=== PATIENT | female | born 1970 | race Caucasian/White ===

== ENCOUNTER 2017-06-02 09:46 | Emergency (ER) | payer BC ==
[2017-06-02 10:08] VITALS: RESP 16; TEMP 96.4
--- NOTE | 2017-06-02 10:22 | PDOC ---
Nausea/Vomiting/Diarrhea HPI - General Chief Complaint: Nausea / Vomiting / Diarrhea Stated Complaint: diarrhea, nausea Date Seen by Provider: 06/02/17 Time Seen by Provider: 10:17 Source: POSITIVE: Patient Exam Limitations: POSITIVE: No limitations Nurse's Notes Reviewed & Considered: Yes - History of Present Illness Initial Comments: This is a 47-year-old female complaining of nausea and diarrhea. This patient lives in the [place] area and is presently traveling through on her way to [facility]. They stopped in [place] overnight and her symptoms of abdominal discomfort and diarrhea increased. She has been having what she describes as diarrhea for 15 days. This morning she began to have right lower quadrant pain and associated nausea. The diarrhea she describes as brown mucus. She states that she is having episodes of regular stools with brown mucus encasing the stool as well as episodes of chest mucus. She is having subjective fevers but is afebrile at this time. She denies chills and sweats. She denies headache denies sore throat. 2 weeks ago she did have a cough which caused her to seek evaluation by physician. At that time her was diagnosed with pneumonia and she developed chest tightness and shortness of breath for which she was prescribed albuterol. His at that time that she developed diarrhea. She read that albuterol can cause diarrhea and thinks that it may be associated. She has since stopped taking albuterol. Presently denies any shortness of breath or cough. She does have nausea but no vomiting she does have diarrhea. She denies any hematuria or dysuria. She denies rashes. She states she has never been and that her last menses was a week ago. Body Location Affected: REPORTS: Abdomen Timing: REPORTS: Constant Duration: >1 week Severity: Moderate Quality: REPORTS: Cramping, Fullness, "Pain" Abdominal Pain Onset Location: REPORTS: RLQ Abdominal Pain Radiation: REPORTS: RLQ Context: REPORTS: Sleep Modifying Factors: improves with: Nothing Associated Symptoms: REPORTS: Diarrhea, Mucous Diarrhea Similar Symptoms Previously: No Recent Care Received: REPORTS: Recently Seen, Treated by MD Any Prior Injuries Related to Current Complaint?: No - Patient Home Medications Home Medications: Home Medications Levonorgestrel-Eth Estra [Seasonale] 1 each PO DAILY 06/02/17 - Patient Allergies Allergies/Adverse Reactions: Allergies Allergy/AdvReac Type Severity Reaction Status Date / Time No Known Allergies Allergy Verified 06/02/17 09:57 Past Medical History - heen HEENT History: Denies History Cardiovascular History: Denies History Respiratory History: Other (please comment) Additional Respiratory History: says she has had issues with a "respiratory illness" but no diagnosis Gastrointestinal History: Other (please comment) Additional Gastrointestinal History: HAS "ALLERGIES" TO FOODS THAT CAUSE HER TO HAVE ABD PAIN Genitourinary History: Denies History Endocrine History: Denies History Musculoskeletal History: Denies History Neurological History: Denies History Blood Disorders: Denies History Psychiatric History: Denies History History of Sexually Transmitted Diseases: No Female Reproductive History: Denies History LMP: 05/22/17 Obstetrical History: Denies History Cancer History: Denies History In Past Year Been Physically Harmed or Verbally Threatened: No History of MDRO: No History of Other Communicable Diseases: No Tobacco Use: Never Smoker Alcohol Use: Rarely Substance Use Type: None Previous Surgical History: Yes Type / Date of Surgery: MAYA. EXPLORATORY LAP FOR ENDOMETRIOSIS Significant Family History: No pertinent family hx ROS - Limitations ROS Limitations: No Limitations Constitution: REPORTS: Fever Cardiovascular: REPORTS: Denies Cardiac Symptoms Respiratory: REPORTS: Denies Resp Symptoms Neurological: REPORTS: Denies Neuro Symptoms Gastrointestinal: REPORTS: Abdominal Pain, Nausea, Diarrhea Endocrine: REPORTS: Denies Symptoms Musculoskeletal: REPORTS: Denies MS Symptoms Genitourinary: REPORTS: Denies Symptoms Eyes: REPORTS: Denies Symptoms ENT: REPORTS: Denies Symptoms Skin: REPORTS: Denies Skin Symptoms Lympathic: REPORTS: Denies Lympathic Symptoms Immunologic: POSITIVE: Denies Symptoms Psychiatric: POSITIVE: Denies Psych Symptoms Nausea/Vomiting/Diarrhea Exam - General Appearance General Appearance: POSITIVE: Alert, Cooperative, No Acute Distress, No Evidence of Trauma - HEENT HEENT: POSITIVE: Head Inspection Nml, Eyes Inspection Nml, Ears Inspection Nml, Nose Inspection Nml, Oral/Dental Inspect. Nml, Pharynx Inspect. Nml, PERRL, EOMI - Neck Neck: POSITIVE: Supple, Normal Inspection, Non Tender - Respiratory Respiratory: POSITIVE: No Respiratory Distress, Breath Sounds Normal, Chest Non- Tender - Cardiovascular Cardiovascular: POSITIVE: Regular Rate and Rhythm, Heart Sounds Normal, Equal Pulses, Strong Pulses Peripheral Pulses: Radial (R): 3+ - Chest Chest: POSITIVE: Non Tender - Abdomen Abdomen: Soft: (All Quadrants), Normal Bowel Sounds: (All Quadrants), No Splenomegaly: (All Quadrants), No Hepatomegaly: (All Quadrants), No Guarding: ( All Quadrants), No Rebound: (All Quadrants), No Palpable Pulse: (All Quadrants) , No [place] Mass: (All Quadrants), No Distention: (All Quadrants), No Rigidity: (All Quadrants), Tenderness Noted: (RLQ) - Back Back: POSITIVE: Normal Inspection - Skin Skin: POSITIVE: Intact, Normal For Race, Warm, Dry, No Rash - Extremities Extremity: Non-Tender: (All Extremities), Normal ROM: (All Extremities), Normal Inspection: (All Extremities), Pelvis Stable: (All Extremities) - Neurological / Psychological Neurological: POSITIVE: Oriented X3, Motor Normal N/V/D Progress - Results Reviewed by me Xrays/CTs/US Reviewed by me: Yes Discussed with Radiologist: Yes Lab Results Reviewed: Yes Lab Results:: Laboratory Results 06/02/17 06/02/17 Range/Units 10:15 10:17 WBC 10.92 H (4.8-10.8) 10^3/uL RBC 4.70 (4.20-5.40) 10^6/uL Hgb 14.0 (12.0-16.0) g/dL Hct 41.5 (37.0-47.0) % MCV 88.3 (81-99) FL MCH 29.8 (27-31) PG MCHC 33.7 (33-37) g/dL RDW Std Deviation 38.8 L (39-50) fL RDW Coeff of Ty 12.1 (11.5-14.5) % Plt Count 296 (140-350) 10*3/uL MPV 10.9 (7.4-12.2) FL Immature Gran % (Auto) 0.2 (0-5) % Neut % (Auto) 73.3 (50-80) % Lymph % (Auto) 20.3 (10-50) % [place] % (Auto) 4.1 L (5-15) % Eos % (Auto) 1.2 (0-8) % Baso % (Auto) 0.9 (0-1) % Immature Gran # (Auto) 0.02 10*3/UL Neut # (Auto) 8.00 10*3/UL Lymph # (Auto) 2.22 10*3/uL [place] # (Auto) 0.45 (0.3-0.8) 10*3/UL Eos # (Auto) 0.13 10*3/UL Baso # (Auto) 0.10 10*3/UL WBC Morphology Comment Normal morphology (NORM) Plt Morphology Comment Normal morphology (NORM) RBC Morph Comment Normal morphology (NORM) Sodium 139 (135-145) meq/L Potassium 3.7 L (3.8-5.2) meq/L Chloride 108 (98-112) meq/L Carbon Dioxide 21 L (23-33) meq/L Anion Gap 10 (5-20) BUN 14 (7-22) mg/dL Creatinine 0.9 (0.50-1.20) mg/dL Estimated GFR > 60 (>60 ml/min/1.73m(2)) BUN/Creatinine Ratio 15.55 (6-20) Glucose 90 (78-110) mg/dL Calculated Osmolality 288.0 (267-292) mOsm/kg Calcium 9.1 (8.7-10.7) mg/dL Magnesium 2.0 (1.6-2.4) mg/dL Total Bilirubin 0.5 (0.3-1.2) mg/dL AST 16 (8-39) IU/L ALT 31 (9-52) IU/L Alkaline Phosphatase 79 (38-126) IU/L Total Protein 7.2 (6.1-8.0) g/dL Albumin 4.1 (3.5-4.8) g/dL Globulin 3.0 (2.50-4.10) g/dL Albumin/Globulin Ratio 1.30 (1.3-2.0) mg/g TSH 1.57 (0.2700-4.2000) uIU/mL Serum HCG, Qual Negative Ur Collection Type Clean catch urine Urine Color Yellow Urine Clarity Clear (CLEAR) Urine pH 6.0 (5.0-8.5) Ur Specific [place] <=1.005 (1.005-1.030) Urine Protein Negative (NEG) mg/dl Urine Glucose (UA) Negative (NEG) mg/dL Urine Ketones Trace (NEG) Urine Occult Blood Trace-lysed H (NEG) Urine Nitrate Negative (NEG) Urine Bilirubin Negative (NEG) Urine Urobilinogen 0.2 (0.2) EU/dL Ur Leukocyte Esterase Negative (NEG) Urine RBC None (NONE) /hpf Urine WBC None (NONE) Ur Squamous Epith Cells Rare (NONE) Ur Renal Epithelial Cell None (NONE) Urine Crystals None Urine Bacteria None (NONE) Urine Casts None (NONE) Urine Mucus None (NONE) Urine Trichomonas None (NONE) Urine Yeast None (NONE) Ur Culture Indicated? Culture not set - Patient's Progress Pain Medication Addressed: POSITIVE: Not Applicable Re-examine Time: 12:06 Status: POSITIVE: Improved MDM / ED Course: Patient was examined, blood drawn and sent to the lab for studies, an IV started , radiographic examinations of her pelvis were obtained. Patient received a liter of normal saline and IV Zofran. Her symptoms have improved and her anxiety has improved. Findings: CBC shows a mild elevation of her white count to 10.9. Comprehensive metabolic panel is unremarkable. TSH is normal. Urinalysis shows ketones present, no bacteria, no leukocyte esterase. Ultrasound per my interpretation shows uterine fibroids present, trace amount of fluid in the pelvis, good blood flow to the bilateral ovaries, no visualization of the appendix. Assessment: Diarrhea with mucus, probable gastroenteritis, likely viral. Plan: Discharge home clear liquids today, advance diet as tolerated. Return to the emergency department if fevers 202, increased diarrhea, blood in stool or vomitus. Follow-up with primary care physician upon return to [place]. - Consult Counseled: POSITIVE: Patient, Family, RE: Lab Results, RE: Radiology Results, RE : DX, RE: Need for F/U Patient Care Time - Estimated PCT Patient Care Time (In Minutes): 45 Vital Signs - Recent Vital Signs Vital Signs: Vital Signs (Last 8 hours) Temp Pulse Resp BP Pulse Ox 06/02/17 09:46 96.4 F L 110 H 16 148/91 94 - VS Reviewed Vital Signs Reviewed: Yes Discharge Clinical Impression: Diarrhea Discharge Disposition: Discharged to Home Condition: Stable Patient Instructions Given at Discharge: Acute Abdominal Pain (ED), Acute Diarrhea (ED), Loperamide (By mouth)
[2017-06-02] MEDS: ONDANSETRON 4 MG/2 ML VIAL IVP ONE (10:29)
[2017-06-02] MEDS: Sodium Chloride 0.9% 1,000 ML PRIMARY IV ONE (10:30)
[2017-06-02 10:33] LABS: HEMATOCRIT 41.5 % (37.0-47.0); MEAN CORPUSCULAR HEMOGLOBIN 29.8 PG (27-31); MEAN CORPUSCULAR HGB CONC 33.7 g/dL (33-37); MEAN CORPUSCULAR VOLUME 88.3 FL (81-99)
[2017-06-02 10:34] LABS: BASOPHILS % (AUTO) 0.9 % (0-1); EOSINOPHILS # (AUTO) 0.13 10*3/UL; EOSINOPHILS % (AUTO) 1.2 % (0-8); LYMPHOCYTES # (AUTO) 2.22 10*3/uL; MEAN PLATELET VOLUME 10.9 FL (7.4-12.2); MONOCYTES # (AUTO) 0.45 10*3/UL (0.3-0.8); MONOCYTES % (AUTO) 4.1 % (5-15); NEUTROPHILS % (AUTO) 73.3 % (50-80); PLATELET MORPHOLOGY COMMENT NORMAL MORPHOLOGY (NORM); RBC MORPHOLOGY COMMENT NORMAL MORPHOLOGY (NORM); WBC MORPHOLOGY COMMENT NORMAL MORPHOLOGY (NORM)
[2017-06-02 10:37] LABS: BLOOD UREA NITROGEN 14 mg/dL (7-22); BUN/CREATININE RATIO 15.55 (6-20); CALCIUM 9.1 mg/dL (8.7-10.7); EST GLOMERULAR FILTRATION > 60 (>60 ml/min/1.73m(2)); SERUM ALBUMIN 4.1 g/dL (3.5-4.8)
[2017-06-02 12:00] LABS: BILIRUBIN,URINE NEGATIVE (NEG); CLARITY,URINE CLEAR (CLEAR); COLOR,URINE YELLOW; GLUCOSE, URINE (UA) NEGATIVE (NEG); NITRATE,URINE NEGATIVE (NEG); OCCULT BLOOD,URINE Trace-lysed (NEG); PROTEIN,URINE NEGATIVE (NEG); UROBILINOGEN,URINE 0.2 EU/dL (0.2)
[2017-06-02 12:03] LABS: SQUAMOUS EPITHELIAL CELL,UR RARE; URINE SAMPLE TYPE CLEAN CATCH URINE
--- NOTE | 2017-06-02 12:36 | DI ---
HISTORY: Nausea, diarrhea and right lower quadrant pain. PREVIOUS EXAM: None available. TECHNIQUE: Multiple grayscale and color Doppler sonographic images are obtained transabdominally thr ough the pelvis. FINDINGS: Ultrasound images demonstrate a multilobulated uterus measuring 9.6 x 4.7 x 5.0 cm with an endometrial stripe measuring 4 mm. There are least 2 visible fibroids the largest of which measures 4 cm in long axis and is in the subserosal left fundus. There is a smaller fibroid involving the post erior uterine fundus in a myometrial location measuring 3.5 cm in diameter. The right ovary measures 4.8 x 2.8 x 3.6 cm and the left ovary measures 4.3 x 2.3 x 3.8 cm. The ovaries are within normal limits with normal Doppler flow containing a few maturing follicles. IMPRESSION: 1. Fibroid uterus. 2. No acute intrapelvic pathology. NOTE: The interpreting Radiologist was not present at the time of ultrasound interrogation.
== END 2017-06-02 12:20 | disposition home or self-care (01) ==
LOC: ER 09:46
DX: R19.7 Diarrhea, unspecified (principal); R11.0 Nausea; R10.31 Right lower quadrant pain; D25.2 Subserosal leiomyoma of uterus
CPT/HCPCS: 76856; 80053; 81001; 81003; 83735; 84443; 84703; 85025; 96361; 96374; 99283 ×2; J2405; J7030